=== PATIENT | female | born 1990 | race American Indian/Alaskan Native ===

== ENCOUNTER 2019-08-18 10:40 | Emergency (ER) | payer SELFPAY ==
[2019-08-18 10:57] VITALS: BP 120/77
[2019-08-18] MEDS ORDERED: NACL 0.9% 1000 ML 1,000 ML IV ONE (11:25)
[2019-08-18] MEDS ORDERED: ZOFRAN IV ONE (11:25)
[2019-08-18 11:48] LABS: Basophils % (Auto) 0.4 % (0.0-1.8); Eosinophils % (Auto) 0.3 % (0.0-4.3); Hematocrit 44.9 % (30.3-42.9); Hemoglobin 14.8 gm/dl (10.1-14.3); Lymphocytes # (Auto) 0.9 K/mm3 (1.2-5.4); Lymphocytes % (Auto) 12.6 % (13.4-35.0); Mean Corpuscular HGB Conc 33 % (30-34); Mean Corpuscular Volume 90 fl (79-97); Monocytes # (Auto) 0.3 K/mm3 (0.0-0.8); Monocytes % (Auto) 3.8 % (0.0-7.3); Platelet Count 253 K/mm3 (140-440); Red Blood Count 4.99 M/mm3 (3.65-5.03); Red Cell Distribution Width 12.6 % (13.2-15.2)
--- NOTE | 2019-08-18 11:52 | Emergency Department Report ---
ED General Adult HPI - General Chief complaint: Nausea/Vomiting/Diarrhea Stated complaint: GENERAL ILLNESS Time Seen by Provider: 08/18/19 11:17 Source: patient Mode of arrival: Ambulatory Limitations: No Limitations - History of Present Illness Initial comments: Patient is a 29-year-old female presents emergency room with complaints of nausea and diarrhea that began at 3 AM this morning. she has associated generalized abd cramping. She states she also has a productive cough with mucus. she also has generalized fatigue and generalized weakness. Denies any fever, urinary symptoms, chills, any other symptoms. Denies any sick contacts. States she has past medical history epilepsy as a child but is no longer on any medication. Denies any allergies medications. - Related Data Previous Rx's Medication Instructions Recorded Last Taken Type Naproxen Sodium [Aleve] 220 mg PO Q8H PRN #50 tablet 04/03/14 Unknown Rx methOCARBAMOL [Robaxin] 500 mg PO BID #14 tab 04/03/14 Unknown Rx oxyCODONE /ACETAMINOPHEN [Percocet 1 tab PO Q6HR PRN #10 tablet 04/03/14 Unknown Rx 5/325 mg] Dicyclomine [Bentyl] 20 mg PO QID PRN #14 tablet 08/18/19 Unknown Rx Ondansetron [Zofran Odt] 4 mg PO Q8HR PRN #10 tab.rapdis 08/18/19 Unknown Rx guaiFENesin ER [Mucinex ER] 600 mg PO Q12H #14 tablet.er 08/18/19 Unknown Rx Allergies Allergy/AdvReac Type Severity Reaction Status Date / Time No Known Allergies Allergy Unverified 04/03/14 18:55 ED Review of Systems ROS: Stated complaint: GENERAL ILLNESS Other details as noted in HPI Comment: All other systems reviewed and negative ED Past Medical Hx - Past Medical History Previous Medical History?: Yes Hx Hypertension: No Hx CVA: No Hx Seizures: Yes - Surgical History Past Surgical History?: No - Social History Smoking Status: Current Every Day Smoker Substance Use Type: None - Medications Home Medications: Home Medications Medication Instructions Recorded Confirmed Last Taken Type Naproxen Sodium [Aleve] 220 mg PO Q8H PRN #50 tablet 04/03/14 Unknown Rx methOCARBAMOL [Robaxin] 500 mg PO BID #14 tab 04/03/14 Unknown Rx oxyCODONE /ACETAMINOPHEN [Percocet 1 tab PO Q6HR PRN #10 tablet 04/03/14 Unknown Rx 5/325 mg] Dicyclomine [Bentyl] 20 mg PO QID PRN #14 tablet 08/18/19 Unknown Rx Ondansetron [Zofran Odt] 4 mg PO Q8HR PRN #10 tab.rapdis 08/18/19 Unknown Rx guaiFENesin ER [Mucinex ER] 600 mg PO Q12H #14 tablet.er 08/18/19 Unknown Rx ED Physical Exam - General Limitations: No Limitations General appearance: alert, in no apparent distress - Head Head exam: Present: atraumatic, normocephalic - Eye Eye exam: Present: normal appearance - ENT ENT exam: Present: mucous membranes moist - Respiratory Respiratory exam: Present: normal lung sounds bilaterally. Absent: respiratory distress, wheezes, rales, rhonchi, stridor, chest wall tenderness, accessory muscle use, decreased breath sounds, prolonged expiratory - Cardiovascular Cardiovascular Exam: Present: regular rate, normal rhythm, normal heart sounds. Absent: systolic murmur, diastolic murmur, rubs, gallop - GI/Abdominal GI/Abdominal exam: Present: soft, normal bowel sounds. Absent: distended, tenderness, guarding, rebound, rigid - Neurological Exam Neurological exam: Present: alert, oriented X3 - Psychiatric Psychiatric exam: Present: normal affect, normal mood - Skin Skin exam: Present: warm, dry, intact ED Course Vital Signs 08/18/19 08/18/19 10:54 14:29 Temperature 98.0 F 98.0 F Pulse Rate 73 73 Respiratory 16 16 Rate Blood Pressure 120/77 O2 Sat by Pulse 100 100 Oximetry ED Medical Decision Making - Lab Data Result diagrams: 08/18/19 11:36 08/18/19 15:04 Lab Results 08/18/19 08/18/19 08/18/19 Range/Units 11:36 11:36 11:36 WBC 6.8 (4.5-11.0) K/mm3 RBC 4.99 (3.65-5.03) M/mm3 Hgb 14.8 H (10.1-14.3) gm/dl Hct 44.9 H (30.3-42.9) % MCV 90 (79-97) fl MCH 30 (28-32) pg MCHC 33 (30-34) % RDW 12.6 L (13.2-15.2) % Plt Count 253 (140-440) K/mm3 Lymph % (Auto) 12.6 L (13.4-35.0) % Sandoval % (Auto) 3.8 (0.0-7.3) % Eos % (Auto) 0.3 (0.0-4.3) % Baso % (Auto) 0.4 (0.0-1.8) % Lymph # 0.9 L (1.2-5.4) K/mm3 Sandoval # 0.3 (0.0-0.8) K/mm3 Eos # 0.0 (0.0-0.4) K/mm3 Baso # 0.0 (0.0-0.1) K/mm3 Seg Neutrophils % 82.9 H (40.0-70.0) % Seg Neutrophils # 5.6 (1.8-7.7) K/mm3 Sodium TNR Potassium TNR Chloride TNR Carbon Dioxide TNR Anion Gap TNR BUN TNR Creatinine TNR Estimated GFR TNR BUN/Creatinine Ratio TNR Glucose TNR Calcium TNR Total Bilirubin TNR AST TNR ALT TNR Alkaline Phosphatase TNR Total Protein TNR Albumin TNR Albumin/Globulin Ratio TNR HCG, Quant < 2 (0-4) mIU/mL Urine Color (Yellow) Urine Turbidity (Clear) Urine pH (5.0-7.0) Ur Specific Carbon (1.003-1.030) Urine Protein (Negative) mg/dL Urine Glucose (UA) (Negative) mg/dL Urine Ketones (Negative) mg/dL Urine Blood (Negative) Urine Nitrite (Negative) Urine Bilirubin (Negative) Urine Urobilinogen (<2.0) mg/dL Ur Leukocyte Esterase (Negative) Urine WBC (Auto) (0.0-6.0) /HPF Urine RBC (Auto) (0.0-6.0) /HPF U Epithel Cells (Auto) (0-13.0) /HPF Urine Mucus /HPF 08/18/19 Range/Units Unknown WBC (4.5-11.0) K/mm3 RBC (3.65-5.03) M/mm3 Hgb (10.1-14.3) gm/dl Hct (30.3-42.9) % MCV (79-97) fl MCH (28-32) pg MCHC (30-34) % RDW (13.2-15.2) % Plt Count (140-440) K/mm3 Lymph % (Auto) (13.4-35.0) % Sandoval % (Auto) (0.0-7.3) % Eos % (Auto) (0.0-4.3) % Baso % (Auto) (0.0-1.8) % Lymph # (1.2-5.4) K/mm3 Sandoval # (0.0-0.8) K/mm3 Eos # (0.0-0.4) K/mm3 Baso # (0.0-0.1) K/mm3 Seg Neutrophils % (40.0-70.0) % Seg Neutrophils # (1.8-7.7) K/mm3 Sodium Potassium Chloride Carbon Dioxide Anion Gap BUN Creatinine Estimated GFR BUN/Creatinine Ratio Glucose Calcium Total Bilirubin AST ALT Alkaline Phosphatase Total Protein Albumin Albumin/Globulin Ratio HCG, Quant (0-4) mIU/mL Urine Color Yellow (Yellow) Urine Turbidity Clear (Clear) Urine pH 5.0 (5.0-7.0) Ur Specific Carbon 1.016 (1.003-1.030) Urine Protein <15 mg/dl (Negative) mg/dL Urine Glucose (UA) Neg (Negative) mg/dL Urine Ketones Neg (Negative) mg/dL Urine Blood Neg (Negative) Urine Nitrite Neg (Negative) Urine Bilirubin Neg (Negative) Urine Urobilinogen < 2.0 (<2.0) mg/dL Ur Leukocyte Esterase Neg (Negative) Urine WBC (Auto) 1.0 (0.0-6.0) /HPF Urine RBC (Auto) 2.0 (0.0-6.0) /HPF U Epithel Cells (Auto) 2.0 (0-13.0) /HPF Urine Mucus Few /HPF - Radiology Data Radiology results: report reviewed CHEST 1 VIEW INDICATION: cough. COMPARISON: None FINDINGS: Support devices: None. Heart: Within normal limits. Lungs/Pleura: No acute air space or interstitial disease. Additional findings: None. IMPRESSION: No acute findings. Signer Name: Ugo Patel Jr, MD Signed: 08/18/2019 1:43 PM Workstation Name: [id number] Transcribed By: TTR Dictated By: UGO PATEL JR, MD Electronically Authenticated By: UGO PATEL JR, MD Signed Date/Time: 08/18/19 1343 - Medical Decision Making Patient is a 29-year-old female presents emergency room with complaints of nausea and diarrhea that began at 3 AM this morning. she has associated generalized abd cramping. She states she also has a productive cough with mucus. she also has generalized fatigue and generalized weakness. Denies any fever, urinary symptoms, chills, any other symptoms. Denies any sick contacts. States she has past medical history epilepsy as a child but is no longer on any medication. Denies any allergies medications. vitals are normal. labs are stable. UA without evidence of UTI. pt given IVF and zofran and symptoms improved. pt had no episodes of emesis while in the ED and was able to tolerate PO intake. CXR with no acute process. symptoms most likely consistent with viral origin. pt given prescriptions for symptomatic treatment. advised pt to please take medication as prescribed as needed. Follow-up with a primary care doctor in the next 2-3 days. Please increase your water intake and eat a bland diet for the next several days. Return to the emergency room for any new or wor sening symptoms. Critical care attestation.: If time is entered above; I have spent that time in minutes in the direct care of this critically ill patient, excluding procedure time. ED Disposition Clinical Impression: Abdominal cramping, Nausea, Cough Diarrhea Qualifiers: Diarrhea type: unspecified type Qualified Code(s): R19.7 - Diarrhea, unspecified Disposition: - TO HOME OR SELFCARE Is pt being admited?: No Does the pt Need Aspirin: No Condition: Stable Instructions: Viral Syndrome (ED) Additional Instructions: Please take medication as prescribed as needed. Follow-up with a primary care doctor in the next 2-3 days. Please increase your water intake and eat a bland diet for the next several days. Return to the emergency room for any new or worsening symptoms. Prescriptions: Dicyclomine [Bentyl] 20 mg PO QID PRN #14 tablet PRN Reason: abdominal cramping guaiFENesin ER [Mucinex ER] 600 mg PO Q12H #14 tablet.er Ondansetron [Zofran Odt] 4 mg PO Q8HR PRN #10 tab.rapdis PRN Reason: Nausea Referrals: [facility] [Provider Group] - 2-3 Days Time of Disposition: 15:41 Print Language: YAKUT
[2019-08-18 12:47] LABS: Bilirubin,Urine NEG (Negative); Blood,Urine NEG (Negative); Color,Urine Yellow (Yellow); Mucus,Urine FEW /HPF; Protein,Urine <15 mg/dL mg/dL (Negative); Urobilinogen,Urine < 2.0 mg/dL (<2.0)
[2019-08-18 12:54] LABS: Blood Urea Nitrogen TNR mg/dL (7-17)
[2019-08-18 12:55] LABS: BUN/Creatinine Ratio TNR
[2019-08-18 12:56] LABS: Alanine Aminotransferase TNR units/L (7-56); Albumin TNR g/dL (3.9-5); Calcium TNR mg/dL (8.4-10.2); Hemolysis Index TNR
--- NOTE | 2019-08-18 13:47 | XRay Report ---
CHEST 1 VIEW INDICATION: cough. COMPARISON: None FINDINGS: Support devices: None. Heart: Within normal limits. Lungs/Pleura: No acute air space or interstitial disease. Additional findings: None. IMPRESSION: No acute findings. Signer Name: Ugo Rene Jr, MD Signed: 08/18/2019 1:43 PM Workstation Name: [id number]
[2019-08-18] MEDS ORDERED: ZOFRAN ODT PO ONE (15:09)
[2019-08-18 15:37] LABS: BUN/Creatinine Ratio 17; Blood Urea Nitrogen 10 mg/dL (7-17); Calcium 8.9 mg/dL (8.4-10.2); Hemolysis Index 16
== END 2019-08-18 15:56 | disposition home or self-care (01) ==
LOC: ED 10:40
DX: R10.84 Generalized abdominal pain (principal); R11.0 Nausea; R19.7 Diarrhea, unspecified; F17.200 Nicotine dependence, unspecified, uncomplicated; Z79.899 Other long term (current) drug therapy
CPT/HCPCS: 36415; 71045; 80048; 80053; 81001; 84702; 85025; 96361; 96374; 99284; J2405; J7030; Q0162

== ENCOUNTER 2021-01-24 21:01 | Emergency (ER) | payer MEDICAID ==
[2021-01-24 21:15] VITALS: BP 108/71
--- NOTE | 2021-01-24 21:30 | Emergency Department Report ---
Chief Complaint: Eye Problems Stated Complaint: N/V, EYE PAIN - HPI History of Present Illness: 30-year-old -[place] female who is approximately 17 weeks presents to the emergency room for redness to her right eye. Patient states that she had been vomiting. She denies any trauma to her eye. Denies any drainage. - Exam Vital Signs: Vital Signs 01/24/21 21:09 Temperature 98.9 F Pulse Rate 95 H Respiratory 20 Rate Blood Pressure 108/71 O2 Sat by Pulse 99 Oximetry Physical Exam: Gen: alert oriented NAD Right eye conjunctiva normal sclera hemorrhage no tenderness no pain Cardic: regular rate and rhythm no murmurs appreciated Resp: No accessory muscles use MSE screening note: Focused history and physical exam performed. Due to findings the following was ordered: 30-year-old -[place] female who is approximately 17 weeks presents to the emergency room for redness to her right eye. Patient states that she had been vomiting. She denies any trauma to her eye. Denies any drainage. ED Disposition for MSE Clinical Impression: Scleral hemorrhage of right eye Disposition: Z-07 MED SCREENING EXAM-LEFT Is pt being admited?: No Does the pt Need Aspirin: No Condition: Stable Instructions: Subconjunctival Hemorrhage Additional Instructions: Redness will reabsorb into your sclera over a few days she will notice the color changing to maybe green and yellow. Tylenol as needed for pain keep your appointment tomorrow with your [facility]. Referrals: PRIMARY CARE, [Primary Care Provider] - 3-5 Days Forms: Work/School Release Form(ED)
== END 2021-01-24 21:29 | disposition left against medical advice (07) ==
LOC: ED 21:01
DX: H57.89 Other specified disorders of eye and adnexa (principal); Z53.21 Procedure and treatment not carried out due to patient leaving prior to being seen by health care provider

== ENCOUNTER 2021-05-20 09:38 | Emergency (ER) | payer MEDICAID ==
--- NOTE | 2021-05-20 10:31 | Emergency Department Report ---
HPI - General Chief Complaint: Syncope Time Seen by Provider: 05/20/21 10:15 - HPI HPI: Room 7 The patient is a 31-year-old female present with a chief complaint of near syncope. Patient states she was at a [employer] facility filling out paperwork when she states she began to feel hot. The patient states there is no air conditioning inside the unit and it felt better outside. The patient states she stepped outside to get some fresh air and accidentally walked into a pole and then missed a step falling off of the curb. Patient states she never lost consciousness but experienced some shortness of breath. Patient states she improved after drinking some water. Patient denies ever having chest pain, abdominal pain or vaginal bleeding. Patient denies history of cough, fever. Patient denies any recent flights or long car trips. Patient is approximately 8 months ED Past Medical Hx - Past Medical History Hx Seizures: Yes (None since age 18) - Surgical History Past Surgical History?: No - Family History Family history: no significant - Social History Smoking Status: Former Smoker (None x6 months) Substance Use Type: None (Denies illicit drug use) - Medications Home Medications: Home Medications Medication Instructions Recorded Confirmed Last Taken Type Naproxen Sodium [Aleve] 220 mg PO Q8H PRN #50 tablet 04/03/14 Unknown Rx methOCARBAMOL [Robaxin] 500 mg PO BID #14 tab 04/03/14 Unknown Rx oxyCODONE /ACETAMINOPHEN [Percocet 1 tab PO Q6HR PRN #10 tablet 04/03/14 Unknown Rx 5/325 mg] Dicyclomine [Bentyl] 20 mg PO QID PRN #14 tablet 08/18/19 Unknown Rx Ondansetron [Zofran Odt] 4 mg PO Q8HR PRN #10 tab.rapdis 08/18/19 Unknown Rx guaiFENesin ER [Mucinex ER] 600 mg PO Q12H #14 tablet.er 08/18/19 Unknown Rx ED Review of Systems ROS: Stated complaint: SYNCOPE Other details as noted in HPI Constitutional: denies: fever Eyes: denies: eye pain ENT: denies: throat pain Respiratory: shortness of breath Cardiovascular: denies: chest pain Endocrine: no symptoms reported Gastrointestinal: denies: abdominal pain Genitourinary: denies: abnormal menses Musculoskeletal: denies: back pain Neurological: denies: headache Physical Exam - Physical Exam Vital Signs: Vital Signs 05/20/21 09:49 Temperature 98.9 F Pulse Rate 97 H Respiratory 18 Rate Blood Pressure 102/67 O2 Sat by Pulse 95 Oximetry Physical Exam: GENERAL: The patient is well-developed well-nourished female lying on stretcher not appearing to be in acute distress. [] HEENT: Normocephalic. Atraumatic. Extraocular motions are intact. Patient has moist mucous membranes. NECK: Supple. Trachea midline CHEST/LUNGS: Clear to auscultation. There is no respiratory distress noted. HEART/CARDIOVASCULAR: Regular. There is no tachycardia. There is no gallop rub or murmur. ABDOMEN: Abdomen is gravid. Patient has normal bowel sounds. SKIN: There is no rash. There is no edema. There is no diaphoresis. NEURO: The patient is awake, alert, and oriented. The patient is cooperative. The patient has no focal neurologic deficits. The patient has normal speech MUSCULOSKELETAL: There is no evidence of acute injury. ED Course Vital Signs 05/20/21 09:49 Temperature 98.9 F Pulse Rate 97 H Respiratory 18 Rate Blood Pressure 102/67 O2 Sat by Pulse 95 Oximetry ED Medical Decision Making - Lab Data Result diagrams: 05/20/21 10:37 05/20/21 10:37 Laboratory Tests 05/20/21 05/20/21 05/20/21 10:37 10:37 10:37 WBC 10.9 RBC 3.60 L Hgb 11.0 Hct 33.5 MCV 93 MCH 30 MCHC 33 RDW 12.3 L Plt Count 205 D-Dimer 662.68 H Sodium 140 Potassium 4.4 Chloride 106.6 Carbon Dioxide 25 Anion Gap 13 BUN 8 Creatinine 0.5 L Estimated GFR > 60 BUN/Creatinine Ratio 16 Glucose 86 Calcium 8.7 Total Creatine Kinase 68 CK-MB (CK-2) 2.0 CK-MB (CK-2) Rel Index 2.9 Troponin T < 0.010 TSH Free T4 05/20/21 10:37 WBC RBC Hgb Hct MCV MCH MCHC RDW Plt Count D-Dimer Sodium Potassium Chloride Carbon Dioxide Anion Gap BUN Creatinine Estimated GFR BUN/Creatinine Ratio Glucose Calcium Total Creatine Kinase CK-MB (CK-2) CK-MB (CK-2) Rel Index Troponin T TSH 1.320 Free T4 0.85 - EKG Data -: EKG Interpreted by Me EKG shows normal: sinus rhythm Rate: tachycardia (106 bpm) - EKG Data When compared to previous EKG there are: previous EKG unavailable Interpretation: nonspecific ST-T wave tommie - Differential Diagnosis Vagal episode, overheated, PE, symptomatic anemia, dehydration Critical care attestation.: If time is entered above; I have spent that time in minutes in the direct care of this critically ill patient, excluding procedure time. ED Disposition Clinical Impression: Shortness of breath, Near syncope Disposition: DC-07 LEFT AGAINST MED ADVICE Is pt being admited?: No Does the pt Need Aspirin: No Condition: Undetermined Forms: AMA Form Time of Disposition: 11:38 (Patient left AMA)
[2021-05-20 11:12] LABS: Hematocrit 33.5 % (30.3-42.9); Mean Corpuscular HGB Conc 33 % (30-34); Mean Corpuscular Volume 93 fl (79-97); Platelet Count 205 K/mm3 (140-440); Red Cell Distribution Width 12.3 % (13.2-15.2)
[2021-05-20 11:16] VITALS: BP 114/69
[2021-05-20 11:25] LABS: Blood Urea Nitrogen 8 mg/dL (7-17); Calcium 8.7 mg/dL (8.4-10.2); Hemolysis Index 7
[2021-05-20 11:26] LABS: BUN/Creatinine Ratio 16
[2021-05-20 11:35] LABS: Free T4 (Free Thyroxine) 0.85 ng/dL (0.76-1.46)
[2021-05-20 14:45] LABS: Band Neutrophils # (Manual) 0.1 K/mm3; Platelet Estimate Consistent w Auto; RBC Morphology Normal; Total Cells Counted 100
--- NOTE | 2021-05-20 18:28 | Electrocardiograph Report ---
[facility], [place] Test Date: 2021-05-20 Test Time: 10:38:04 Pat Name: ALINE ALDRICH Department: Room: Gender: F Tube Maker: [id number] : [id number] Requested By: AMINATA KERR Order Number: [id number] Reading MD: Remy Ramos Measurements Intervals [place] Rate: 106 P: 44 MA: 141 QRS: 31 QRSD: 72 T: 13 QT: 334 QTc: 443 Interpretive Statements Sinus tachycardia Low voltage, precordial leads No previous ECG available for comparison Electronically Signed On 05-20-2021 18:28:37 EDT by Remy Ramos
== END 2021-05-20 12:01 | disposition left against medical advice (07) ==
LOC: ED 09:38
DX: R55 Syncope and collapse (principal); R06.02 Shortness of breath; Z87.891 Personal history of nicotine dependence; Z79.899 Other long term (current) drug therapy
CPT/HCPCS: 36415; 80048; 82550; 82553; 84439; 84443; 84484; 85007; 85025; 85379; 93005

== ENCOUNTER 2021-06-09 13:24 | Outpatient (CLI) | payer MEDICAID ==
[2021-06-09 14:33] VITALS: BP 120/81
== END 2021-06-09 16:29 | disposition home or self-care (01) ==
LOC: TRG 13:24 → APU 13:25 → TRG 16:29
PROVIDERS: ATTEND Obstetrics & Gynecology
DX: Z34.93 Encounter for supervision of normal pregnancy, unspecified, third trimester (principal); Z3A.36 36 weeks gestation of pregnancy
CPT/HCPCS: 36415; 59025; 84112

== ENCOUNTER 2021-06-30 11:40 | Outpatient (CLI) | payer MEDICAID ==
[2021-06-30 15:49] LABS: Hematocrit 35.3 % (30.3-42.9); Hemoglobin 11.6 gm/dl (10.1-14.3); Mean Corpuscular HGB Conc 33 % (30-34); Mean Corpuscular Volume 91 fl (79-97); Platelet Count 289 K/mm3 (140-440); Red Blood Count 3.87 M/mm3 (3.65-5.03); Red Cell Distribution Width 12.6 % (13.2-15.2)
[2021-06-30 16:02] VITALS: BP 127/85
[2021-06-30 16:02] LABS: Bacteria,Urine 2+ /HPF (Negative); Bilirubin,Urine NEG (Negative); Blood,Urine NEG (Negative); Calcium Oxalate Crystals,Urine 1+; Color,Urine Yellow (Yellow); Mucus,Urine 2+ /HPF
[2021-06-30 16:07] LABS: Alanine Aminotransferase 20 units/L (7-56); Uric Acid 4.8 mg/dL (3.5-7.6)
== END 2021-06-30 16:23 | disposition home or self-care (01) ==
LOC: TRG 11:40 → APU 11:45 → TRG 16:23
PROVIDERS: ATTEND Obstetrics & Gynecology
DX: Z34.93 Encounter for supervision of normal pregnancy, unspecified, third trimester (principal); Z3A.39 39 weeks gestation of pregnancy
CPT/HCPCS: 36415; 81001; 82565; 83615; 84450; 84460; 84550; 85027